=== PATIENT | male | born 1980 | race African-American/Black ===

== ENCOUNTER 2017-08-22 19:58 | Emergency (ER) | payer SELFPAY ==
[2017-08-22] MEDS ORDERED: KETOROLAC TROMETHAMINE 60 MG/2 ML VIAL IM ONE ×2 (20:15→20:23)
[2017-08-22] MEDS ORDERED: oxyCODONE HCL/ACETAMINOPHEN 1 TAB TABLET PO ONE (20:16)
[2017-08-22] MEDS ORDERED: LIDOCAINE HCL 20 ML UDC MM ONE (20:16)
[2017-08-22] MEDS ORDERED: oxyCODONE HCL/ACETAMINOPHEN 1 TAB TABLET ONE (20:23)
[2017-08-22] MEDS ORDERED: CLINDAMYCIN PHOSPHATE 150 MG/ML VIAL IM ONE (20:24)
--- NOTE | 2017-08-22 20:27 | ERNOTE ---
ENT HPI Date of Service: 08/22/17 Time Seen by Provider: 08/22/17 20:11 Source: patient Exam Limitations: no limitations - Immun/Allergies/Home Medications Immunizations: IMMUNIZATION HX Immunizations Up to Date Yes History of Influenza Vaccine No Allergies/Adverse Reactions: Allergies Allergy/AdvReac Type Severity Reaction Status Date / Time No Known Allergies Allergy Verified 08/22/17 20:03 Home Medications: HOME MEDICATIONS Alprazolam [Xanax] 0.5 mg PO TID PRN 09/30/13 [Last Taken 11/04/13] Nabumetone 750 mg PO BID #20 tablet 07/14/16 [Last Taken Unknown] Clindamycin HCl [Cleocin HCl] 300 mg PO Q6H #40 capsule 08/22/17 [Last Taken Unknown] - History of Present Illness Narrative: Pt. comes in with c/o L lower mandible tooth pain for 2 weeks. Pt. states that he called his primary dentist in [place], [place]. and he states that they were not able to get him in for two weeks. Pt. denies any SOB, CP, NVD, fever, recent illness or injury but states that he knows he has multiple cavities. Pt. states that he has tried Ibuprofen and Tylenol without success. Review of Systems - Review of Systems Constitutional: Present: no symptoms reported. Absent: recent illness, fever, chills, weakness, fatigue, malaise EYE: Present: no symptoms reported ENT: Present: other - L mandible dental pain Respiratory: Present: no symptoms reported. Absent: shortness of breath, cough , wheezing Cardiology: Present: no symptoms reported. Absent: chest pain, palpitations, edema Gastrointestinal/Abdominal: Present: no symptoms reported. Absent: nausea, vomiting, diarrhea Genitourinary: Present: no symptoms reported Musculoskeletal: Present: no symptoms reported Skin: Present: no symptoms reported Neurological: Present: no symptoms reported. Absent: headache, dizziness/light- headedness, numbness, tingling All Other Systems: All systems neg except as marked - Patient's Past Medical History Patient History - Medical: No pertinent hx, Anxiety Patient History - Cardiac/Respiratory: No pertinent hx Patient History - Cancer: No Hx of Cancer Patient History - Other: None - Social History Psych History: No pertinent hx Smoking Status: Current every day smoker - Immunizations Immunizations Up to Date: Yes History of Influenza Vaccine: No Physical Exam - Physical Exam General Appearance: Present: wd/wn, alert, no apparent distress Head Exam: Present: normal inspection, no evidence of injury Eye Exam: Normal inspection: bilateral, PERRL: bilateral, EOMI: bilateral Ears, Nose, Throat: Present: normal ENT inspection, normal pharynx Neck: Present: normal inspection, nontender. 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 Absent: pallor, skin rash ED Progress - Vital Signs Patient's Vital Signs:: I have reviewed the patient's vital signs. Vital Signs: Vital Signs 08/22/17 20:03 Temperature 36.8 C Pulse Rate 95 Respiratory 20 Rate Blood Pressure 174/109 O2 Sat by Pulse 97 Oximetry - Progress/Reassessment Chief Complaint: Dental Problem Departure Clinical Impression: Dental abscess - Departure Disposition: Home self-care Condition: Good Instructions: Dental Abscess, [id number] Additional Instructions: Please follow up with primary provider in 2-3 days. Prescriptions: Clindamycin HCl [Cleocin HCl] 300 mg PO Q6H #40 capsule
[2017-08-22 21:08] VITALS: BP 164/113
== END 2017-08-22 21:09 | disposition home or self-care (01) ==
LOC: ER 19:58
DX: K04.7 Periapical abscess without sinus (principal); F41.9 Anxiety disorder, unspecified; F17.200 Nicotine dependence, unspecified, uncomplicated